=== PATIENT | female | born 1945 | race Caucasian/White ===

== ENCOUNTER → 2023-06-21 09:07 | Outpatient (REF) | payer OTHER, SELFPAY ==
[2023-06-21 12:15] LABS: PT 19.8 Sec (11.4-14.6)
== END ==
LOC: HWLAB 09:07
PROVIDERS: ATTENDING PHYSICIAN Internal Medicine Cardiovascular Disease; FAMILY PHYSICIAN Family Medicine; REFERRING PHYSICIAN Internal Medicine Endocrinology, Diabetes & Metabolism
DX: I48.21 Permanent atrial fibrillation (principal)
CPT/HCPCS: 36415; 85610

== ENCOUNTER → 2023-07-09 09:03 | Outpatient (REF) | payer OTHER, SELFPAY ==
[2023-07-09 12:01] LABS: INR 2.21; PT 24.4 Sec (11.4-14.6)
== END ==
LOC: HWLAB 09:03
PROVIDERS: ATTENDING PHYSICIAN Internal Medicine Cardiovascular Disease; FAMILY PHYSICIAN Family Medicine
DX: I48.21 Permanent atrial fibrillation (principal)
CPT/HCPCS: 36415; 85610

== ENCOUNTER → 2023-08-06 08:27 | Outpatient (REF) | payer OTHER, SELFPAY ==
[2023-08-06 10:21] LABS: INR 2.39; PT 25.9 Sec (11.4-14.6)
== END ==
LOC: HWLAB 08:27
PROVIDERS: ATTENDING PHYSICIAN Internal Medicine Cardiovascular Disease; FAMILY PHYSICIAN Family Medicine
DX: I48.21 Permanent atrial fibrillation (principal)
CPT/HCPCS: 36415; 85610

== ENCOUNTER → 2023-08-26 08:26 | Outpatient (REF) | payer OTHER, SELFPAY ==
[2023-08-26 12:31] LABS: INR 2.26; PT 24.8 Sec (11.4-14.6)
== END ==
LOC: HWLAB 08:26
PROVIDERS: ATTENDING PHYSICIAN Internal Medicine Cardiovascular Disease; FAMILY PHYSICIAN Internal Medicine
DX: I48.21 Permanent atrial fibrillation (principal)
CPT/HCPCS: 36415; 85610

== ENCOUNTER → 2023-10-02 08:12 | Outpatient (REF) | payer OTHER, SELFPAY ==
[2023-10-02 09:35] LABS: PT 31.6 Sec (11.4-14.6)
== END ==
LOC: HWLAB 08:12
PROVIDERS: ATTENDING PHYSICIAN Internal Medicine Cardiovascular Disease
DX: I48.21 Permanent atrial fibrillation (principal)
CPT/HCPCS: 36415; 85610

== ENCOUNTER → 2023-10-28 06:46 | Outpatient (REF) | payer OTHER, SELFPAY ==
[2023-10-28 10:53] LABS: INR 2.95; PT 30.7 Sec (11.4-14.6)
== END ==
LOC: HWLAB 06:46
PROVIDERS: ATTENDING PHYSICIAN Internal Medicine Cardiovascular Disease
DX: I48.21 Permanent atrial fibrillation (principal)
CPT/HCPCS: 36415; 85610

== ENCOUNTER → 2023-11-19 08:01 | Outpatient (REF) | payer OTHER, SELFPAY ==
[2023-11-19 09:49] LABS: INR 3.07; PT 31.6 Sec (11.4-14.6)
[2023-11-19 09:53] LABS: ALT (SGPT) 21 U/L (0-35); AST (SGOT) 27 U/L (14-36); Albumin 4.2 g/dl (3.5-5.0); Alkaline Phosphatase 53 U/L (38-126); Blood Urea Nitrogen 36 mg/dl (7-17); Calcium 9.3 mg/dl (8.4-10.2); Carbon Dioxide 31 mmol/L (22-30); Chloride 99 mmol/L (98-107); Glucose 114 mg/dl (70-99); HDL Cholesterol 44 mg/dl; LDL Cholesterol, Calculated 54 mg/dl; Potassium 3.9 mmol/L (3.5-5.1); Sodium 140 mmol/L (135-145); Total Bilirubin 0.6 mg/dl (0.2-1.3); Total Cholesterol 131 mg/dl (50-199); Total Protein 7.1 g/dl (6.3-8.2); Triglyceride 167 mg/dl (10-149); Very Low Density Lipoprotein 33 mg/dl (0-30); eGFR 32.81
== END ==
LOC: HWLAB 08:01
PROVIDERS: ATTENDING PHYSICIAN Internal Medicine Cardiovascular Disease
DX: I10 Essential (primary) hypertension (principal); E78.5 Hyperlipidemia, unspecified; I48.21 Permanent atrial fibrillation
CPT/HCPCS: 36415; 80053; 80061; 85610

== ENCOUNTER → 2023-12-03 09:54 | Outpatient (REF) | payer OTHER, SELFPAY | LOC: HWRAD 09:54 | PROVIDERS: ATTENDING PHYSICIAN Student in an Organized Health Care Education/Training Program | DX: M10.9 Gout, unspecified (principal) | CPT/HCPCS: 73140 ==

== ENCOUNTER → 2023-12-24 08:22 | Outpatient (REF) | payer OTHER, SELFPAY ==
[2023-12-24 09:36] LABS: INR 3.48
[2023-12-24 10:11] LABS: Glycohemoglobin (HgbA1c) 6.5 % (4.0-5.6)
[2023-12-24 15:14] LABS: ALT (SGPT) 24 U/L (0-35); AST (SGOT) 29 U/L (14-36); Albumin 3.9 g/dl (3.5-5.0); Alkaline Phosphatase 48 U/L (38-126); Blood Urea Nitrogen 40 mg/dl (7-17); Calcium 8.6 mg/dl (8.4-10.2); Carbon Dioxide 29 mmol/L (22-30); Chloride 101 mmol/L (98-107); Glucose 117 mg/dl (70-99); HDL Cholesterol 44 mg/dl; LDL Cholesterol, Calculated 59 mg/dl; Potassium 4.4 mmol/L (3.5-5.1); Sodium 137 mmol/L (135-145); Total Bilirubin 0.7 mg/dl (0.2-1.3); Total Cholesterol 143 mg/dl (50-199); Total Protein 6.4 g/dl (6.3-8.2); Triglyceride 202 mg/dl (10-149); Very Low Density Lipoprotein 40 mg/dl (0-30)
== END ==
LOC: HWLAB 08:22
PROVIDERS: ATTENDING PHYSICIAN Internal Medicine Endocrinology, Diabetes & Metabolism; REFERRING PHYSICIAN Internal Medicine Cardiovascular Disease
DX: E11.9 Type 2 diabetes mellitus without complications (principal); E78.5 Hyperlipidemia, unspecified; I48.21 Permanent atrial fibrillation
CPT/HCPCS: 36415; 80053; 80061; 83036; 85610

== ENCOUNTER → 2024-01-03 17:20 | Outpatient (REF) | payer OTHER, SELFPAY ==
[2024-01-03 19:02] LABS: Uric Acid 9.4 mg/dl (2.5-6.2)
[2024-01-03 19:45] LABS: TSH Reflex To Free T4 2.98 uIU/ml (0.47-4.68)
== END ==
LOC: CLAB 17:20
PROVIDERS: ATTENDING PHYSICIAN Student in an Organized Health Care Education/Training Program
DX: M10.9 Gout, unspecified (principal); Z13.29 Encounter for screening for other suspected endocrine disorder
CPT/HCPCS: 36415; 84443; 84550

== ENCOUNTER → 2024-01-13 08:40 | Outpatient (REF) | payer OTHER, SELFPAY ==
[2024-01-13 11:51] LABS: INR 3.12
== END ==
LOC: HWLAB 08:40
PROVIDERS: ATTENDING PHYSICIAN Internal Medicine Cardiovascular Disease; FAMILY PHYSICIAN Student in an Organized Health Care Education/Training Program
DX: I48.21 Permanent atrial fibrillation (principal)
CPT/HCPCS: 36415; 85610

== ENCOUNTER → 2024-01-27 08:32 | Outpatient (REF) | payer OTHER, SELFPAY ==
[2024-01-27 11:14] LABS: INR 3.38; PT 34.2 Sec (11.4-14.6)
== END ==
LOC: HWLAB 08:32
PROVIDERS: ATTENDING PHYSICIAN Internal Medicine Cardiovascular Disease
DX: I48.21 Permanent atrial fibrillation (principal)
CPT/HCPCS: 36415; 85610

== ENCOUNTER → 2024-02-12 07:50 | Outpatient (REF) | payer OTHER, SELFPAY ==
[2024-02-12 09:50] LABS: INR 2.88; PT 30.6 Sec (11.4-14.6)
== END ==
LOC: HWLAB 07:50
PROVIDERS: ATTENDING PHYSICIAN Internal Medicine Cardiovascular Disease; FAMILY PHYSICIAN Student in an Organized Health Care Education/Training Program
DX: I48.21 Permanent atrial fibrillation (principal)
CPT/HCPCS: 36415; 85610

== ENCOUNTER → 2024-03-04 08:10 | Outpatient (REF) | payer OTHER, SELFPAY ==
[2024-03-04 10:24] LABS: INR 1.38
== END ==
LOC: HWLAB 08:10
PROVIDERS: ATTENDING PHYSICIAN Internal Medicine Cardiovascular Disease; FAMILY PHYSICIAN Student in an Organized Health Care Education/Training Program
DX: I48.21 Permanent atrial fibrillation (principal)
CPT/HCPCS: 36415; 85610

== ENCOUNTER → 2024-03-12 07:59 | Outpatient (REF) | payer OTHER, SELFPAY ==
[2024-03-12 09:52] LABS: INR 1.53; PT 18.5 Sec (11.4-14.6)
== END ==
LOC: HWLAB 07:59
PROVIDERS: ATTENDING PHYSICIAN Internal Medicine Cardiovascular Disease; FAMILY PHYSICIAN Student in an Organized Health Care Education/Training Program
DX: I48.21 Permanent atrial fibrillation (principal)
CPT/HCPCS: 36415; 85610

== ENCOUNTER → 2024-03-19 08:43 | Outpatient (REF) | payer OTHER, SELFPAY ==
[2024-03-19 12:41] LABS: INR 1.54; PT 18.6 Sec (11.4-14.6)
== END ==
LOC: HWLAB 08:43
PROVIDERS: ATTENDING PHYSICIAN Internal Medicine Cardiovascular Disease; FAMILY PHYSICIAN Student in an Organized Health Care Education/Training Program
DX: I48.21 Permanent atrial fibrillation (principal)
CPT/HCPCS: 36415; 85610

== ENCOUNTER → 2024-03-26 08:04 | Outpatient (REF) | payer OTHER, SELFPAY ==
[2024-03-26 09:52] LABS: INR 1.89; PT 22.2 Sec (11.4-14.6)
== END ==
LOC: HWLAB 08:04
PROVIDERS: ATTENDING PHYSICIAN Internal Medicine Cardiovascular Disease; FAMILY PHYSICIAN Student in an Organized Health Care Education/Training Program
DX: I48.21 Permanent atrial fibrillation (principal)
CPT/HCPCS: 36415; 85610

== ENCOUNTER → 2024-04-13 08:12 | Outpatient (REF) | payer OTHER, SELFPAY ==
[2024-04-13 09:54] LABS: INR 3.14; PT 32.1 Sec (11.4-14.6)
== END ==
LOC: HWLAB 08:12
PROVIDERS: ATTENDING PHYSICIAN Internal Medicine Cardiovascular Disease; FAMILY PHYSICIAN Student in an Organized Health Care Education/Training Program
DX: I48.21 Permanent atrial fibrillation (principal)
CPT/HCPCS: 36415; 85610

== ENCOUNTER → 2024-05-04 07:48 | Outpatient (REF) | payer OTHER, SELFPAY ==
[2024-05-04 09:48] LABS: INR 2.34; PT 25.7 Sec (11.4-14.6)
== END ==
LOC: HWLAB 07:48
PROVIDERS: ATTENDING PHYSICIAN Internal Medicine Cardiovascular Disease; FAMILY PHYSICIAN Family Medicine
DX: I48.21 Permanent atrial fibrillation (principal)
CPT/HCPCS: 36415; 85610

== ENCOUNTER → 2024-06-09 08:18 | Outpatient (REF) | payer OTHER, SELFPAY ==
[2024-06-09 09:54] LABS: INR 1.65; PT 19.8 Sec (11.4-14.6)
[2024-06-09 09:59] LABS: ALT (SGPT) 17 U/L (0-35); AST (SGOT) 26 U/L (14-36); Albumin 4.3 g/dl (3.5-5.0); Alkaline Phosphatase 52 U/L (38-126); Blood Urea Nitrogen 25 mg/dl (7-17); Calcium 8.7 mg/dl (8.4-10.2); Carbon Dioxide 35 mmol/L (22-30); Chloride 98 mmol/L (98-107); Glucose 112 mg/dl (70-99); HDL Cholesterol 45 mg/dl; LDL Cholesterol, Calculated 55 mg/dl; Potassium 4.2 mmol/L (3.5-5.1); Sodium 141 mmol/L (135-145); Total Bilirubin 0.6 mg/dl (0.2-1.3); Total Cholesterol 130 mg/dl (50-199); Triglyceride 151 mg/dl (10-149); Very Low Density Lipoprotein 30 mg/dl (0-30); eGFR 35.23
[2024-06-09 10:47] LABS: Glycohemoglobin (HgbA1c) 6.1 % (4.0-5.6)
== END ==
LOC: HWLAB 08:18
PROVIDERS: ATTENDING PHYSICIAN Internal Medicine Cardiovascular Disease; FAMILY PHYSICIAN Student in an Organized Health Care Education/Training Program; REFERRING PHYSICIAN Internal Medicine Endocrinology, Diabetes & Metabolism
DX: I10 Essential (primary) hypertension (principal); E78.5 Hyperlipidemia, unspecified; E11.9 Type 2 diabetes mellitus without complications; I48.21 Permanent atrial fibrillation
CPT/HCPCS: 36415; 80053; 80061; 83036; 85610

== ENCOUNTER → 2024-06-30 08:20 | Outpatient (REF) | payer OTHER, SELFPAY ==
[2024-06-30 10:08] LABS: INR 2.01; PT 22.9 Sec (11.4-14.6)
== END ==
LOC: HWLAB 08:20
PROVIDERS: ATTENDING PHYSICIAN Internal Medicine Cardiovascular Disease; FAMILY PHYSICIAN Student in an Organized Health Care Education/Training Program
DX: I48.21 Permanent atrial fibrillation (principal)
CPT/HCPCS: 36415; 85610

== ENCOUNTER → 2024-07-27 08:52 | Outpatient (REF) | payer OTHER, SELFPAY ==
[2024-07-27 12:37] LABS: INR 2.32; PT 25.5 Sec (11.4-14.6)
[2024-07-27 13:04] LABS: Uric Acid 8.5 mg/dl (2.5-6.2)
[2024-07-27 13:06] LABS: Microalbumin, Random Urine 4.9 mg/dl (0.6-1.7); Microalbumin/creatinine Ratio 79.7 mg/g
== END ==
LOC: HWLAB 08:52
PROVIDERS: ATTENDING PHYSICIAN Internal Medicine Cardiovascular Disease; FAMILY PHYSICIAN Student in an Organized Health Care Education/Training Program
DX: I48.21 Permanent atrial fibrillation (principal); M10.9 Gout, unspecified; E11.9 Type 2 diabetes mellitus without complications
CPT/HCPCS: 36415; 82043; 82570; 84550; 85610

== ENCOUNTER → 2024-09-08 07:36 | Outpatient (REF) | payer OTHER, SELFPAY ==
[2024-09-08 09:35] LABS: INR 1.58; PT 19.1 Sec (11.4-14.6)
== END ==
LOC: HWLAB 07:36
PROVIDERS: ATTENDING PHYSICIAN Internal Medicine Cardiovascular Disease; FAMILY PHYSICIAN Student in an Organized Health Care Education/Training Program
DX: I48.21 Permanent atrial fibrillation (principal)
CPT/HCPCS: 36415; 85610

== ENCOUNTER → 2024-09-23 08:02 | Outpatient (REF) | payer OTHER, SELFPAY ==
[2024-09-23 09:50] LABS: INR 1.84; PT 21.7 Sec (11.4-14.6)
== END ==
LOC: HWLAB 08:02
PROVIDERS: ATTENDING PHYSICIAN Internal Medicine Cardiovascular Disease
DX: I48.21 Permanent atrial fibrillation (principal)
CPT/HCPCS: 36415; 85610

== ENCOUNTER → 2024-10-06 08:40 | Outpatient (REF) | payer OTHER, SELFPAY ==
[2024-10-06 12:09] LABS: INR 2.02; PT 23.4 Sec (11.4-14.6)
== END ==
LOC: HWLAB 08:40
PROVIDERS: ATTENDING PHYSICIAN Internal Medicine Cardiovascular Disease
DX: I48.21 Permanent atrial fibrillation (principal)
CPT/HCPCS: 36415; 85610

== ENCOUNTER → 2024-10-27 08:23 | Outpatient (REF) | payer OTHER, SELFPAY | LOC: RAD 08:23 | PROVIDERS: ATTENDING PHYSICIAN Chiropractor | DX: M54.6 Pain in thoracic spine (principal) | CPT/HCPCS: 72072 ==

== ENCOUNTER → 2024-11-18 08:57 | Outpatient (REF) | payer OTHER, SELFPAY ==
[2024-11-18 12:49] LABS: INR 1.73; PT 20.7 Sec (11.4-14.6)
== END ==
LOC: HWLAB 08:57
PROVIDERS: ATTENDING PHYSICIAN Internal Medicine Cardiovascular Disease; FAMILY PHYSICIAN Student in an Organized Health Care Education/Training Program
DX: I48.21 Permanent atrial fibrillation (principal)
CPT/HCPCS: 36415; 85610

== ENCOUNTER → 2024-12-07 07:37 | Outpatient (REF) | payer OTHER, SELFPAY ==
[2024-12-07 09:36] LABS: ALT (SGPT) 16 U/L (0-35); AST (SGOT) 24 U/L (14-36); Albumin 4.5 g/dl (3.5-5.0); Alkaline Phosphatase 47 U/L (38-126); Blood Urea Nitrogen 30 mg/dl (7-17); Calcium 9.4 mg/dl (8.4-10.2); Carbon Dioxide 33 mmol/L (22-30); Chloride 101 mmol/L (98-107); Glucose 100 mg/dl (70-99); HDL Cholesterol 42 mg/dl; LDL Cholesterol, Calculated 72 mg/dl; Potassium 4.0 mmol/L (3.5-5.1); Sodium 142 mmol/L (135-145); Total Protein 7.5 g/dl (6.3-8.2); Very Low Density Lipoprotein 31 mg/dl (0-30); eGFR 32.60
[2024-12-07 09:41] LABS: INR 2.17; PT 24.3 Sec (11.4-14.6)
[2024-12-07 09:59] LABS: Glycohemoglobin (HgbA1c) 6.0 % (4.0-5.6)
== END ==
LOC: HWLAB 07:37
PROVIDERS: ATTENDING PHYSICIAN Internal Medicine Cardiovascular Disease; REFERRING PHYSICIAN Internal Medicine Endocrinology, Diabetes & Metabolism
DX: E78.5 Hyperlipidemia, unspecified (principal); I48.21 Permanent atrial fibrillation; E11.9 Type 2 diabetes mellitus without complications; I10 Essential (primary) hypertension
CPT/HCPCS: 36415; 80053; 80061; 83036; 85610

== ENCOUNTER → 2025-01-04 08:33 | Outpatient (REF) | payer OTHER, SELFPAY ==
[2025-01-04 11:40] LABS: INR 1.97; PT 22.5 Sec (11.4-14.6)
[2025-01-04 11:48] LABS: ALT (SGPT) 16 U/L (0-35); AST (SGOT) 24 U/L (14-36); Albumin 4.2 g/dl (3.5-5.0); Alkaline Phosphatase 46 U/L (38-126); Blood Urea Nitrogen 33 mg/dl (7-17); Calcium 9.0 mg/dl (8.4-10.2); Carbon Dioxide 34 mmol/L (22-30); Chloride 99 mmol/L (98-107); Glucose 104 mg/dl (70-99); HDL Cholesterol 43 mg/dl; LDL Cholesterol, Calculated 72 mg/dl; Potassium 4.2 mmol/L (3.5-5.1); Sodium 139 mmol/L (135-145); Total Protein 7.1 g/dl (6.3-8.2); Very Low Density Lipoprotein 33 mg/dl (0-30); eGFR 30.13
[2025-01-04 12:12] LABS: Microalb - Urine Creatinine 47.300 mg/dl
[2025-01-04 12:18] LABS: Microalbumin, Random Urine 3.6 mg/dl (0.6-1.7)
[2025-01-04 12:35] LABS: TSH 3.85 uIU/ml (0.47-4.68)
[2025-01-05 09:00] LABS: Glycohemoglobin (HgbA1c) 6.0 % (4.0-5.6)
== END ==
LOC: HWLAB 08:33
PROVIDERS: ATTENDING PHYSICIAN Physical Medicine & Rehabilitation Pain Medicine; REFERRING PHYSICIAN Internal Medicine Cardiovascular Disease
DX: E11.9 Type 2 diabetes mellitus without complications (principal); I48.21 Permanent atrial fibrillation
CPT/HCPCS: 36415; 80053; 80061; 82043; 82570; 83036; 84443; 85610

== ENCOUNTER → 2025-01-11 07:59 | Outpatient (REF) | payer OTHER, SELFPAY ==
[2025-01-11 09:53] LABS: INR 2.21; PT 24.6 Sec (11.4-14.6)
== END ==
LOC: HWLAB 07:59
PROVIDERS: ATTENDING PHYSICIAN Internal Medicine Cardiovascular Disease
DX: I48.21 Permanent atrial fibrillation (principal)
CPT/HCPCS: 36415; 85610

== ENCOUNTER → 2025-02-15 08:27 | Outpatient (REF) | payer OTHER, SELFPAY ==
[2025-02-15 12:28] LABS: INR 2.16; PT 24.2 Sec (11.4-14.6)
== END ==
LOC: HWLAB 08:27
PROVIDERS: ATTENDING PHYSICIAN Internal Medicine Cardiovascular Disease; FAMILY PHYSICIAN Student in an Organized Health Care Education/Training Program
DX: I48.21 Permanent atrial fibrillation (principal)
CPT/HCPCS: 36415; 85610

== ENCOUNTER → 2025-03-16 08:24 | Outpatient (REF) | payer OTHER, SELFPAY ==
[2025-03-16 09:39] LABS: INR 1.72; PT 20.3 Sec (11.4-14.6)
== END ==
LOC: HWLAB 08:24
PROVIDERS: ATTENDING PHYSICIAN Internal Medicine Cardiovascular Disease
DX: I48.21 Permanent atrial fibrillation (principal)
CPT/HCPCS: 36415; 85610

== ENCOUNTER → 2025-04-06 11:55 | Outpatient (REF) | payer OTHER, SELFPAY ==
[2025-04-06 15:34] LABS: INR 1.85; PT 21.5 Sec (11.4-14.6)
== END ==
LOC: HWRAD 11:55
PROVIDERS: ATTENDING PHYSICIAN Pain Medicine Interventional Pain Medicine; REFERRING PHYSICIAN Internal Medicine Cardiovascular Disease
DX: M54.16 Radiculopathy, lumbar region (principal); I48.21 Permanent atrial fibrillation
CPT/HCPCS: 36415; 72131; 85610

== ENCOUNTER → 2025-05-18 08:40 | Outpatient (REF) | payer OTHER, SELFPAY ==
[2025-05-18 12:07] LABS: INR 2.18; PT 24.4 Sec (11.4-14.6)
[2025-05-18 12:23] LABS: ALT (SGPT) 21 U/L (0-35); AST (SGOT) 28 U/L (14-36); Albumin 4.1 g/dl (3.5-5.0); Alkaline Phosphatase 46 U/L (38-126); Blood Urea Nitrogen 35 mg/dl (7-17); Calcium 9.1 mg/dl (8.4-10.2); Carbon Dioxide 32 mmol/L (22-30); Chloride 100 mmol/L (98-107); Glucose 87 mg/dl (70-99); HDL Cholesterol 46 mg/dl; LDL Cholesterol, Calculated 64 mg/dl; Potassium 3.5 mmol/L (3.5-5.1); Sodium 137 mmol/L (135-145); Total Protein 6.8 g/dl (6.3-8.2); Very Low Density Lipoprotein 21 mg/dl (0-30); eGFR 35.01
[2025-05-18 12:58] LABS: Glycohemoglobin (HgbA1c) 5.9 % (4.0-5.9)
== END ==
LOC: HWLAB 08:40
PROVIDERS: ATTENDING PHYSICIAN Internal Medicine Cardiovascular Disease; FAMILY PHYSICIAN Student in an Organized Health Care Education/Training Program
DX: E78.5 Hyperlipidemia, unspecified (principal); I10 Essential (primary) hypertension; I48.21 Permanent atrial fibrillation
CPT/HCPCS: 36415; 80053; 80061; 83036; 85610